=== PATIENT | male | born 1975 | race Caucasian/White ===

== ENCOUNTER 2016-08-20 02:00 | Inpatient (IN) | payer OTHER ==
[~2016-08-20] VITALS: Ht 172.7 cm; Wt 77.1 kg
[2016-08-20 02:05] VITALS: BP 130/79
--- NOTE | 2016-08-20 02:05 | NUR ---
PT MIGUEL BLS. TAKEN TO BED 2
--- NOTE | 2016-08-20 02:18 | NUR ---
41 Y/O M BIBA C/O ABD PAIN, RADIATING TO HIS BACK, WITH BLACK STOOL, ETOH, WITHDRAWAL FROM ALCOHOL. 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
[2016-08-20] MEDS ORDERED: PANTOPRAZOLE 40 MG in SODIUM CHLORIDE FLUSH 250 ML IV ONE (02:30)
[2016-08-20] MEDS: NACL 0.9% 1,000 ML IV SCH ×2 (02:40→02:45)
[2016-08-20] MEDS ORDERED: PANTOPRAZOLE 40 MG INJ VIAL IVP ONE (02:45)
[2016-08-20] MEDS ORDERED: MORPHINE SULFATE 4 MG/ML SYR IVP ONE (03:10)
--- NOTE | 2016-08-20 03:10 | NUR ---
PT STABLE, BLOOD PRESSURE ELEVATED, ER MD AWARED, DENIES ANY CHEST PAIN. NO S/S OF DISTRESS NOTED AT THIS TIME.
[2016-08-20] MEDS ORDERED: ONDANSETRON 4 MG/2 ML VIAL IVP ONE (03:15)
[2016-08-20] MEDS ORDERED: ENALAPRILAT 2.5 MG/2 ML VIAL IVP ONE (04:10)
--- NOTE | 2016-08-20 04:25 | NUR ---
Patient will be admitted to care of Rey CAMPOS. Admited to TELEMETRY. Will go to room 107 B. Belongings list completed. Report to CHRISTAL HURTADO.
--- NOTE | 2016-08-20 04:33 | NUR ---
PT BEING TRASFERRED TO TELEMETRY [place]IA [place], CUTTING PRESSMAN IN BED. NO S/S OF DISTRESS NOTED AT THE MOMENT.
--- NOTE | 2016-08-20 04:40 | NUR ---
PT ARRIVED ON UNIT IN STABLE CONDITION. NO SOB. PT IS AOX4, AMBULATORY. SKIN IS INTACT. VS STABLE ON ROOM AIR. IV TO RT AC 20G PATENT, ASYMPTOMATIC, INTACT, SALINE LOCKED. PT C/O 02/17 ABD PAIN AND NAUSEA, WILL MEDICATE PER MD ORDER. ORIENTED PT TO ROOM AND UNIT. PLAN OF CARE DISCUSSED WITH PT. SAFETY MEASURES IN PLACE. CALL LIGHT WITHIN REACH. WILL CONTINUE TO MONITOR.
[2016-08-20 05:18] VITALS: BP 152/82
[2016-08-20] MEDS ORDERED: LORazepam 2 MG/ML VIAL IVP PRN ×2 (05:40→12:30)
[2016-08-20] MEDS: MORPHINE SULFATE 4 MG/ML SYR IVP PRN ×4 (05:48→19:58)
[2016-08-20] MEDS: DEXT 5% /NACL 0.9% 1,000 ML IV SCH ×3 (05:48→22:14)
--- NOTE | 2016-08-20 07:15 | NUR ---
ENDORSED PT IN STABLE CONDITION TO CHRISTAL KIRKPATRICK. ALL NEEDS HAVE BEEN MET AT THIS TIME.
--- NOTE | 2016-08-20 07:16 | NUR ---
RECEIVED PT AWAKE LYING ON BED, AAOX4, WITH NO S/S OF RESPIRATORY DISTRESS. WITH IV ACCESS ON RIGHT AC 20G INFUSING FLUIDS WELL. SKIN IS INTACT. DISCUSSED PLAN OF CARE, PT VERBALIZED UNDERSTANDING. CALL LIGHT WITHIN REACH, WILL CONTINUE TO MONITOR.
[2016-08-20 08:00] VITALS: BP 142/82
[2016-08-20] MEDS: PANTOPRAZOLE 40 MG INJ VIAL IVP SCH (08:02)
--- NOTE | 2016-08-20 08:05 | NUR ---
DUE MED GIVEN, PT TOLERATED WELL. ATIVAN ADMINISTERED PRN DUE TO ANXIETY. ALL NEEDS MET, WILL CONTINUE TO MONITOR.
--- NOTE | 2016-08-20 09:10 | NUR ---
PATIENT HAS BEEN SCREENED AND CATEGORIZED HIGH NUTRITION RISK. PATIENT WILL BE SEEN WITHIN 1-2 DAYS OF ADMISSION. 08/19/16-08/20/[address] Addendum: 08/21/16 at [address] PATIENT HAS BEEN RESCREENED AND RE CATEGORIZED HIGH NUTRITION RISK. PATIENT WILL BE SEEN WITHIN 1-2 DAYS OF ADMISSION. 08/20/16-08/21/[address]
[2016-08-20] MEDS: ONDANSETRON 4 MG/2 ML VIAL IVP PRN ×3 (10:43→19:58)
[2016-08-20 12:00] VITALS: BP 158/67
--- NOTE | 2016-08-20 12:01 | NUR ---
DR CAMPOS AT NURSES' STATION
[2016-08-20] MEDS: chlordiazePOXIDE 25 MG CAP PO SCH ×2 (12:53→16:31)
--- NOTE | 2016-08-20 13:05 | NUR ---
DR LIU AT BEDSIDE
--- NOTE | 2016-08-20 13:58 | NUR ---
CM NOTE INITIAL REVIEW SENT TO [facility] FAX# [phone] PH# [place] [phone] NOVEMBER [phone] AND TO [facility] FAX# [phone] PH# [phone] ATTN: CHELSEA MATTHEWS [id number]
--- NOTE | 2016-08-20 15:21 | NUR ---
PT AWAKE LYING ON BED. COMPLAINED OF PAIN, WILL GIVE MORPHINE. ALL NEEDS MET AT THIS TIME. CALL LIGHT WITHIN REACH, WILL CONTINUE TO MONITOR.
[2016-08-20 16:00] VITALS: BP 154/97
--- NOTE | 2016-08-20 17:54 | NUR ---
PT AWAKE SITTING ON BED EATING LUNCH. NO S/S OF DISTRESS, WILL CONTINUE TO MONITOR.
--- NOTE | 2016-08-20 19:38 | NUR ---
RECEIVED REPORT FROM CASIMIRO SIEGEL AT BEDSIDE. PT IS ALERT AWAKE ORIENTED X4. INITIAL ASSESSMENT DONE. NO S/S OF RESPIRATORY DISTRESS OR SOB NOTED. C/O ABDOMINAL PAIN SCALING 9/10. WILL GIVE PRN PAIN MEDICATION ORDERED. PLAN OF CARE REVIEWED TO PT AND VERBALIZED UNDERSTANDING. CALL LIGHT WITHIN REACH. WILL CONTINUE TO MONITOR.
--- NOTE | 2016-08-20 19:38 | NUR ---
ENDORSED PT TO CHRISTAL PRUETT IN STABLE CONDITION FOR CONTINUITY OF CARE
[2016-08-20 20:00] VITALS: BP 147/76
[2016-08-21] VITALS: BP 135/72
--- NOTE | 2016-08-21 00:05 | NUR ---
PT IS SLEEPING RIGHT NOW BUT EASILY AROUSABLE. NO S/S OF ANY DISCOMFORT AT THIS TIME. ALL NEEDS ARE ATTENDED. CALL LIGHT WITHIN REACH. WILL CONTINUE TO MONITOR.
[2016-08-21] MEDS: ONDANSETRON 4 MG/2 ML VIAL IVP PRN (03:32)
[2016-08-21] MEDS: MORPHINE SULFATE 4 MG/ML SYR IVP PRN ×2 (03:32→11:08)
[2016-08-21 04:00] VITALS: BP 132/73
--- NOTE | 2016-08-21 05:20 | NUR ---
AM CARE RENDERED. BED LINEN CHANGED. INSTRUCTED PT TO REPOSITION. KEPT CLEAN AND DRY. CALL LIGHT WITHIN REACH. WILL CONTINUE TO MONITOR.
[2016-08-21] MEDS: DEXT 5% /NACL 0.9% 1,000 ML IV SCH ×2 (05:28→13:02)
[2016-08-21] MEDS ORDERED: fentaNYL 0.05 MG/ML VIAL ONE ×2 (07:17→07:33)
[2016-08-21] MEDS ORDERED: MIDAZOLAM 2 MG/2 ML VIAL ONE (07:17)
--- NOTE | 2016-08-21 07:22 | NUR ---
PT HAS NO S/S OF ANY DISCOMFORT. PLAN OF CAR ENDORSED TO CASIMIRO SIEGEL AT BEDSIDE FOR CONTINUITY OF CARE.
--- NOTE | 2016-08-21 07:22 | NUR ---
RECEIVED PT AWAKE SITTING ON BED, AAOX4, WITH NO S/S OF DISTRESS. IV ACCESS ON RIGHT AC 20G INFUSING FLUIDS WELL. SKIN IS INTACT. PT LEFT UNIT WITH OR NURSES FOR EGD IN STABLE CONDITION.
[2016-08-21] MEDS ORDERED: fentaNYL 0.05 MG/ML VIAL IVP ONE (07:40)
[2016-08-21] MEDS ORDERED: MIDAZOLAM 2 MG/2 ML VIAL IVP ONE (07:40)
--- NOTE | 2016-08-21 07:50 | NUR ---
PT RETURNED FROM OR ON A GURNEY ACCOMPANIED BY OR NURSES IN STABLE CONDITION. VS STABLE. CALL LIGHT WITHIN REACH, WILL CONTINUE TO MONITOR.
[2016-08-21 08:00] VITALS: BP 149/91
[2016-08-21] MEDS: PANTOPRAZOLE 40 MG INJ VIAL IVP SCH (08:43)
[2016-08-21] MEDS: chlordiazePOXIDE 25 MG CAP PO SCH ×2 (08:43→13:01)
--- NOTE | 2016-08-21 09:10 | NUR ---
PT AWAKE SITTING ON BED, ABLE TO GET UP AND GO TO RESTROOM. NO COMPLAINTS AT THIS TIME. WILL CONTINUE TO MONITOR.
[2016-08-21 12:00] VITALS: BP 136/96
--- NOTE | 2016-08-21 12:42 | NUR ---
CM NOTE CONCURRENT REVIEW SENT TO [facility] FAX# [phone] PH# [place] [phone] NOVEMBER [phone] AND TO [facility] FAX# [phone] PH# [phone] [facility] [id number]
--- NOTE | 2016-08-21 13:25 | NUR ---
08/21/16 RD INITIAL ASSESSMENT COMPLETED PLEASE REFER TO NUTRITION ASSESSMENT UNDER CARE ACTIVITY FOR ESTIMATED NUTRITIONAL NEEDS. RD RECOMMENDATIONS: 1. IF/WHEN PT IS MEDICALLY STABLE TO BEGIN NUTRITION, CONSIDER 2GM SODIUM DIET D/T PT WITH PMH OF HTN AND ELEVATED BLOOD PRESSURE LEVELS. 2. RD PROVIDED PT WITH HEART HEALTHY EATING DIET EDUCATION HANDOUT. 3. RD WILL F/U 3-5 DAYS; MODERATE RISK. RIKA SNEED RD
--- NOTE | 2016-08-21 13:40 | NUR ---
DR CAMPOS AT NURSES STATION
--- NOTE | 2016-08-21 14:38 | NUR ---
DISCHARGE PRESCRIPTIONS AND INSTRUCTIONS GIVEN, PT VERBALIZED UNDERSTANDING. ID WRISTBAND, TELE AND IV ACCESS REMOVED, CATHETER TIP INTACT. PT LEFT UNIT AMBULATING IN STABLE CONDITION
== END 2016-08-21 15:38 | disposition home or self-care (01) | DRG 241 ==
LOC: MED 02:00 → MTU 04:15
PROVIDERS: ADMIT Hospitalist; ATTEND Hospitalist
PROC: 0DB68ZX Excision of Stomach, Via Natural or Artificial Opening Endoscopic, Diagnostic (ICD-10-PCS; principal; 2016-08-21 07:30)
DX: K29.20 Alcoholic gastritis without bleeding (principal); K22.6 Gastro-esophageal laceration-hemorrhage syndrome; K76.0 Fatty (change of) liver, not elsewhere classified; F10.229 Alcohol dependence with intoxication, unspecified; F10.239 Alcohol dependence with withdrawal, unspecified; I10 Essential (primary) hypertension; K92.1 Melena; K29.80 Duodenitis without bleeding; Y90.6 Blood alcohol level of 120-199 mg/100 ml; F41.9 Anxiety disorder, unspecified; Z71.41 Alcohol abuse counseling and surveillance of alcoholic; Z88.2 Allergy status to sulfonamides; Z68.25 Body mass index [BMI] 25.0-25.9, adult

== ENCOUNTER 2018-12-10 21:19 | Emergency (ER) | payer OTHER ==
[~2018-12-10] VITALS: Ht 172.7 cm; Wt 81.6 kg
[2018-12-10 21:28] VITALS: BP 127/90
--- NOTE | 2018-12-10 21:28 | NUR ---
TO BED # 06 AMBULATORY
--- NOTE | 2018-12-10 21:35 | NUR ---
43 Y/O M PRESENTS TO THE ED W/C/O "I CANT SLEEP FOR 4 DAYS" TWITCHING OF BODY, FATIQUE, AND ON AND OFF ANXIETY ATTACKS. PT AAOX4, GCS 15. SKIN WARM AND DRY TO TOUCH. NAD NOTED. RR EVEN/UNLABORED. PT CALM IN MANNER. SKIN COLOR WNL. +CMS. PERIPHERAL PULSES PRESENT.
[2018-12-10] MEDS ORDERED: LORazepam 1 MG TAB PO ONE (21:55)
[2018-12-10 22:55] VITALS: BP 118/85
--- NOTE | 2018-12-10 22:56 | NUR ---
Patient discharged BY DR. PUILDO with v/s stable. Written and verbal after care instructions given and explained. Patient verbalized understanding. Ambulatory with steady gait. All questions addressed prior to discharge. Advised to follow up with PMD.
== END 2018-12-10 22:56 | disposition home or self-care (01) ==
LOC: MED 21:19
DX: F10.239 Alcohol dependence with withdrawal, unspecified (principal); G47.00 Insomnia, unspecified; I10 Essential (primary) hypertension
CPT/HCPCS: 99283